=== PATIENT | male | born 1950 | race Caucasian/White ===

== ENCOUNTER 2017-12-12 17:25 | Emergency (ER) | payer OTHER ==
[2017-12-12 18:13] VITALS: TEMP 98.2; BMI 21.4
[2017-12-12] MEDS ORDERED: Oxycodone/Acetaminophen 5/325 mg Tab PO STA (19:26)
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
[2017-12-12 21:34] VITALS: BP 128/72; PULSE 75; RESP 16; O2SAT 98
== END 2017-12-12 21:34 | disposition home or self-care (01) ==
LOC: ED 17:25
DX: B02.9 Zoster without complications (principal)